=== PATIENT | male | born 1970 | race Caucasian/White ===

== ENCOUNTER 2016-06-19 08:21 | Inpatient (IN) | payer MEDICAID, OTHER ==
[~2016-06-19] VITALS: Ht 188 cm; Wt 90.7 kg
[2016-06-19] MEDS ORDERED: IV NS 0.9% 2,000 ML ONE (08:47)
[2016-06-19] MEDS ORDERED: IV SET PRIMARY 1 EA INFUS.SET MC ONE (08:47)
[2016-06-19] MEDS ORDERED: IV SET PRIMARY PUMP SET 1 EA INFUS.SET MC ONE ×2 (08:57→11:01)
--- NOTE | 2016-06-19 08:58 | NUR ---
PT REC' D TO ER C/O LEFT AEG CELLUITIS LARGE REDNESS OOZING UP ON PILLOWS . IV SATARTED 18 G IV RTAC LABS AND CULTURES DRAWN SENT TO LAB IV FLUIDS AND ANBX GIVENN PER MD ORDER . PT IN CUSTODY PENDING ADMIT
[2016-06-19 08:59] LABS: BASOPHILS % (AUTO) 0.4 % (0.0-2.0); EOSINOPHILS # (AUTO) 0.1 /CMM (0.0-0.7); EOSINOPHILS % (AUTO) 0.7 % (0.0-6.0); HEMATOCRIT 36 % (39-51); HEMOGLOBIN 11.9 g/dL (13.5-17.5); LYMPHOCYTES % (AUTO) 9.1 % (20.0-44.0); MEAN CORPUSCULAR HEMOGLOBIN 26 PG (26.0-33.0); MEAN CORPUSCULAR HGB CONC 33 g/dl (31.0-36.0); MEAN CORPUSCULAR VOLUME 79 fL (80-96); MONOCYTES # (AUTO) 0.9 /CMM (0.1-1.30); MONOCYTES % (AUTO) 8.4 % (2.0-12.0); NEUTROPHILS # (AUTO) 8.5 /CMM (1.8-8.9); NEUTROPHILS % (AUTO) 81.4 % (43.0-81.0); PLATELET COUNT (AUTO) 415 /CMM (150-450); RDW COEFFICIENT OF VARIATION 15.2 (11.5-15.0); RED BLOOD CELL COUNT(AUTO) 4.63 MIL/uL (4.5-6.0); WHITE BLOOD COUNT (AUTO) 10.4 K/uL (4.3-11.0)
[2016-06-19] MEDS ORDERED: PIPERACILLIN /TAZOBACTAM 3.375 G in IV D5W 50 ML IV ONE (09:00)
[2016-06-19] MEDS ORDERED: IV NS 0.9% 1,000 ML BAG IV ONE (09:00)
[2016-06-19] MEDS ORDERED: VANCOMYCIN 1 GM in IV D5W 250 ML IV ONE (09:00)
--- NOTE | 2016-06-19 09:10 | NUR ---
THR LRFT LEG CLEANED AND DRESSING APPLIED PT TOLERATED WELLAWAITING EVALUATION BY ER PROVIDER.
[2016-06-19 09:27] LABS: CALCIUM, SERUM 8.5 mg/dL (8.5-10.1); CREATININE 0.9 mg/dL (0.6-1.3); POTASSIUM 3.9 mmol/L (3.5-5.1)
[2016-06-19 09:38] LABS: LACTIC ACID 0.9 mmol/L (0.4-2.0)
[2016-06-19 09:43] LABS: INR 0.94 (0.87-1.13); PROTHROMBIN TIME 10.2 SECS (9.5-12.7)
--- NOTE | 2016-06-19 10:10 | NUR ---
PAGED DR. STAPLETON FOR ADMISSION
[2016-06-19] MEDS ORDERED: ENOXAPARIN SODIUM 30 MG/0.3 ML DISP.SYRIN ONE (10:16)
[2016-06-19] MEDS ORDERED: ENOXAPARIN SODIUM 100 MG/ML DISP.SYRIN SQ ONE (10:17)
--- NOTE | 2016-06-19 10:17 | NUR ---
LOVENOX GIVEN SQ PER MD PETIT
[2016-06-19] MEDS ORDERED: ENOXAPARIN SODIUM 30 MG/0.3 ML DISP.SYRIN SQ ONE (10:30)
--- NOTE | 2016-06-19 10:35 | NUR ---
PT TRANSFERED TO RM 200 REPORT GIVEN TO FLOOR VSS
[2016-06-19] MEDS ORDERED: FEE PK DOSING 1 MIN EA MC ONE (10:50)
[2016-06-19] MEDS ORDERED: ZOLPIDEM TARTRATE 5 MG TABLET PO PRN (11:00)
[2016-06-19] MEDS ORDERED: MAGNESIUM HYDROXIDE 30 ML UDC PO PRN (11:00)
[2016-06-19] MEDS ORDERED: Z GUARD REMEDY 2 OZ OINT TP PRN (11:00)
[2016-06-19] MEDS ORDERED: HYDROCODONE/APAP 5/325MG 1 EACH TABLET PO PRN (11:00)
[2016-06-19] MEDS ORDERED: ACETAMINOPHEN 325 MG TABLET PO PRN (11:00)
[2016-06-19] MEDS ORDERED: ONDANSETRON HCL/PF 4 MG/2 ML VIAL IVP PRN (11:00)
[2016-06-19] MEDS ORDERED: MAG HYDROX/AL HYDROX/SIMETH 30 ML UDC PO PRN (11:00)
[2016-06-19] MEDS ORDERED: SECONDARY IV SET 1 EA INFUS.SET MC ONE ×2 (11:01→17:09)
[2016-06-19] MEDS ORDERED: IV NS 0.9% 250 ML IV ONE (11:01)
--- NOTE | 2016-06-19 11:15 | NUR ---
MS/shellfish manager New admission from emergency room with left lower extremity cellulitis. Patient is in police custody, two [employer] officers at bedside. Fully admitted, awaiting orders from Dr Davila.
[2016-06-19] MEDS: CEFTRIAXONE 1 G in IV D5W 50 ML IV SCH (11:19)
[2016-06-19 11:25] VITALS: BP 138/73
--- NOTE | 2016-06-19 12:00 | NUR ---
MS/RN Pictures Pictures taken and placed in chart.
[2016-06-19] MEDS: PANTOPRAZOLE 40 MG TABLET.DR PO SCH (12:34)
--- NOTE | 2016-06-19 13:25 | NUR ---
MS/RN S/B Dr Davila Orders written and carried out, consult requested from Dr Ley.
--- NOTE | 2016-06-19 15:00 | NUR ---
MS/RN S/B Elizabeth Mathis VICE PRESIDENT OF TALENT ACQUISITION Seen by Elizabeth Mathis - wound care ordered, along with bilateral lower extremity arterial duplex.
--- NOTE | 2016-06-19 15:31 | NUR ---
MS/vp care management Dressing changed as per order, pictures already present and in chart.
--- NOTE | 2016-06-19 15:49 | NUR ---
MS/RN Vanco trough Vanco trough to be drawn prior to third dose (06/20 - 1600)
[2016-06-19 16:00] VITALS: BP 120/82
[2016-06-19] MEDS ORDERED: SET RED CAP 1 EA INFUS.SET MC ONE (17:09)
[2016-06-19] MEDS: VANCOMYCIN 1.25 GM in IV D5W 500 ML IV SCH ×2 (17:20→22:04)
--- NOTE | 2016-06-19 18:15 | NUR ---
MS/RN End note Legs remain elevated on two pillows, dressing dry and intact. No complaints of pain at this time, patient is calm and cooperative with care. No changes at this time, will endorse to overnight associate.
--- NOTE | 2016-06-19 19:40 | NUR ---
MS RN NOTE: PATIENT RESTING IN BED, NO ACUTE DISTRESS. BREATHING EVEN AND UNLABORED, NO SOB NOTED. IV TO RAC IN PLACE. [employer] OFFICER AT BEDSIDE, PATIENT UNDER [employer] CUSTODY. DRESSING TO LLE CLEAN AND IN PLACE. BED LOCKED AND IN LOWEST POSITION, CALL LIGHT IN REACH. WILL CONTINUE TO MONITOR.
[2016-06-19 20:00] VITALS: BP 119/65
--- NOTE | 2016-06-19 22:00 | NUR ---
MS RN NOTE: [employer] OFFICERS AT BEDSIDE AND INFORMED THAT SINCE PATIENT WILL BE IN HOSPITAL FOR POSSIBLE A FEW DAYS, THEY DON'T HAVE TO STAY AT BEDSIDE DUE NOT ENOUGH STAFF. PATIENT NO LONGER IN CUSTODY. BED LOCKED AND IN LOWEST POSITION, CALL LIGHT IN REACH. WILL CONTINUE TO MONITOR.
[2016-06-20] MEDS: VANCOMYCIN 1.25 GM in IV D5W 500 ML IV SCH ×3 (05:59→20:54)
--- NOTE | 2016-06-20 06:00 | NUR ---
MS RN NOTE: PATIENT RESTING IN BED, NO ACUTE DISTRESS. BREATHING EVEN AND UNLABORED, NO SOB NOTED. hl TO RAC IN PLACE. DRESSING TO LLE CLEAN AND IN PLACE. BED LOCKED AND IN LOWEST POSITION, CALL LIGHT IN REACH. WILL ENDORSE TO DAY NURSE TO CONTINUE WITH PLAN OF CARE.
[2016-06-20 06:57] LABS: BASOPHILS % (AUTO) 0.6 % (0.0-2.0); EOSINOPHILS # (AUTO) 0.2 /CMM (0.0-0.7); EOSINOPHILS % (AUTO) 2.9 % (0.0-6.0); HEMATOCRIT 35 % (39-51); HEMOGLOBIN 11.3 g/dL (13.5-17.5); LYMPHOCYTES % (AUTO) 13.3 % (20.0-44.0); MEAN CORPUSCULAR HEMOGLOBIN 26 PG (26.0-33.0); MEAN CORPUSCULAR HGB CONC 32 g/dl (31.0-36.0); MEAN CORPUSCULAR VOLUME 80 fL (80-96); MONOCYTES # (AUTO) 0.7 /CMM (0.1-1.30); MONOCYTES % (AUTO) 9.1 % (2.0-12.0); NEUTROPHILS # (AUTO) 5.6 /CMM (1.8-8.9); NEUTROPHILS % (AUTO) 74.1 % (43.0-81.0); PLATELET COUNT (AUTO) 322 /CMM (150-450); RDW COEFFICIENT OF VARIATION 15.5 (11.5-15.0); RED BLOOD CELL COUNT(AUTO) 4.39 MIL/uL (4.5-6.0); WHITE BLOOD COUNT (AUTO) 7.6 K/uL (4.3-11.0)
[2016-06-20 07:19] LABS: CALCIUM, SERUM 8.3 mg/dL (8.5-10.1); CREATININE 0.9 mg/dL (0.6-1.3); PHOSPHORUS 3.6 mg/dL (2.5-4.9); POTASSIUM 3.6 mmol/L (3.5-5.1)
[2016-06-20 08:00] VITALS: BP 109/65
--- NOTE | 2016-06-20 08:15 | NUR ---
MS/RN AM NOTES RECEIVED PATIENT IN BED, A/OX 4. DENIES PAIN, NO SOB, IV LINE RAC PATENT, NO SWELLING, NO REDNESS, ABLE TO FLUSH. NEEDS MET,WITH CALL LIGHT WITHIN EASY REACH
[2016-06-20] MEDS: RIVAROXABAN 15 MG TABLET PO SCH ×2 (08:52→18:00)
[2016-06-20] MEDS: PANTOPRAZOLE 40 MG TABLET.DR PO SCH (08:52)
--- NOTE | 2016-06-20 11:09 | NUR ---
Social service consult requested by Nursing grounds maintenance supervisor [facility] for homelessness. Per H&P report by Dr. Davila, Pt. is a 46 year old man who is homeless and presented to ED in [employer] custody with left lower extremity cellulitis. Pt. was admitted for left lower extremity cellulitis, DVT. SW met with pt. bedside. Pt. is A&O x 4. Initially pt. was guarded in answering questions but became less guarded as the assessment continued. SW asked pt. if he is homeless. Pt. responded " I'm roaming around to find a home." Pt. is no longer in custody. SW inquired with pt. the reason he was in custody and if he is on probation? Pt. stated " to ask the police for that information." Pt. is being evasive in providing information. Pt. has an extensive history of drug and alcohol use. Pt. states he does it all. Pt. also smokes cigarettes. Pt. stated," I smoke a pack a day to how much ever I want." Pt. last used methamphetamines two days ago prior to hospitalization. Pt. denies suicidal/homicidal ideations and visual/auditory hallucinations at this time. Pt. has no source of income. SW offered pt. skilled nursing placement, however pt. seemed skeptical. SW to give pt. homeless resources prior to discharge and inquire again with pt. if he would like skilled nursing placement.
[2016-06-20] MEDS: CEFTRIAXONE 1 G in IV D5W 50 ML IV SCH (11:58)
[2016-06-20 16:00] VITALS: BP 119/71
[2016-06-20] MEDS: LACTOBACILLUS RHAMNOSUS GG 1 EACH CAP.SPRINK PO SCH (18:01)
--- NOTE | 2016-06-20 19:05 | NUR ---
RN NOTE RECEIVED REPORT. PT AAOX4, NO C/O PAIN OR DISCOMFORT. BREATHING EVEN AND NON-LABORED. R AC INTACT AND PATENT H/L. NO DISTRESS AT THIS TIME. WILL CONTINUE TO MONITOR.
[2016-06-20 20:00] VITALS: BP 113/72
--- NOTE | 2016-06-21 02:12 | NUR ---
RN NOTE PT RESTING COMFORTABLY IN BED. NO DISTRESS NOTED AT THIS TIME. WILL CONT TO MONTITOR.
[2016-06-21] MEDS: VANCOMYCIN 1.25 GM in IV D5W 500 ML IV SCH ×3 (04:23→23:11)
[2016-06-21 07:11] LABS: CALCIUM, SERUM 8.3 mg/dL (8.5-10.1); POTASSIUM 3.9 mmol/L (3.5-5.1)
--- NOTE | 2016-06-21 07:30 | NUR ---
MS/RN Patient received Patient received from rouge mixer. No needs at this time, denies pain. Dressing to left lower extremity dry and intact, leg remains elevated on two pillows. Call light within reach, will continue to monitor.
[2016-06-21 08:00] VITALS: BP 120/67
[2016-06-21] MEDS: LACTOBACILLUS RHAMNOSUS GG 1 EACH CAP.SPRINK PO SCH ×2 (08:10→16:38)
[2016-06-21] MEDS: RIVAROXABAN 15 MG TABLET PO SCH ×2 (08:10→16:38)
[2016-06-21] MEDS: PANTOPRAZOLE 40 MG TABLET.DR PO SCH (08:10)
--- NOTE | 2016-06-21 08:39 | NUR ---
MS/RN Medications Morning medications administered as ordered.
[2016-06-21] MEDS ORDERED: SET RED CAP 1 EA INFUS.SET MC ONE (10:55)
[2016-06-21] MEDS: CEFTRIAXONE 1 G in IV D5W 50 ML IV SCH (10:56)
[2016-06-21] MEDS ORDERED: IV NS 0.9% 250 ML IV ONE (11:01)
--- NOTE | 2016-06-21 13:00 | NUR ---
MS/RN Vanco level Vanco level prior to third dose 15, therefore dose administered.
[2016-06-21 16:00] VITALS: BP 131/79
--- NOTE | 2016-06-21 16:48 | NUR ---
MS/RN Dressing change Dressing changed, cleansed with 1/4 strength dakins, gauez, kerlix wrap. Leg kept elevated on two pillows.
[2016-06-21] MEDS: DAKINS QUARTER STRENGTH (0.125%) 480 ML BOTTLE TOP SCH (17:15)
--- NOTE | 2016-06-21 18:45 | NUR ---
MS/RN End note No changes at this time, continues to deny pain. Dressing dry and intact, no new needs or concerns at this time, will endorse to half section ironer.
[2016-06-21 19:00] VITALS: BP 104/60
--- NOTE | 2016-06-21 19:45 | NUR ---
MSRN FULLY AWAKE, PAINFREE, DENIES ANY DISCOMFORTS. REMINDED TO CALL STAFF FOR ANY ASSISTANCE OR DISCOMFORTS. ALL NEEDS ATTENDED.
[2016-06-21 20:00] VITALS: BP 109/63
--- NOTE | 2016-06-21 22:00 | NUR ---
MSRN DUE MEDS GIVEN, NO OTHER NEEDS MADE.
--- NOTE | 2016-06-22 02:07 | NUR ---
MSRN SLEEPING APPEARS COMFORTABLE.
[2016-06-22] MEDS: VANCOMYCIN 1.25 GM in IV D5W 500 ML IV SCH ×3 (05:52→21:19)
[2016-06-22 06:45] LABS: BASOPHILS % (AUTO) 0.5 % (0.0-2.0); EOSINOPHILS # (AUTO) 0.2 /CMM (0.0-0.7); EOSINOPHILS % (AUTO) 2.2 % (0.0-6.0); HEMATOCRIT 43 % (39-51); HEMOGLOBIN 14.1 g/dL (13.5-17.5); LYMPHOCYTES # (AUTO) 1.1 /CMM (0.8-4.8); LYMPHOCYTES % (AUTO) 11.8 % (20.0-44.0); MEAN CORPUSCULAR HEMOGLOBIN 26 PG (26.0-33.0); MEAN CORPUSCULAR HGB CONC 33 g/dl (31.0-36.0); MEAN CORPUSCULAR VOLUME 79 fL (80-96); MONOCYTES # (AUTO) 0.6 /CMM (0.1-1.30); MONOCYTES % (AUTO) 6.7 % (2.0-12.0); NEUTROPHILS % (AUTO) 78.8 % (43.0-81.0); PLATELET COUNT (AUTO) 380 /CMM (150-450); RDW COEFFICIENT OF VARIATION 14.9 (11.5-15.0); RED BLOOD CELL COUNT(AUTO) 5.41 MIL/uL (4.5-6.0); WHITE BLOOD COUNT (AUTO) 8.9 K/uL (4.3-11.0)
--- NOTE | 2016-06-22 06:50 | NUR ---
MSRN REMAINS UNCHANGED. DENIES ANY DISCOMFORTS.
[2016-06-22 07:07] LABS: CALCIUM, SERUM 8.6 mg/dL (8.5-10.1); CREATININE 0.9 mg/dL (0.6-1.3); POTASSIUM 4.2 mmol/L (3.5-5.1)
--- NOTE | 2016-06-22 07:42 | NUR ---
MS/RN Patient received Patient received from hourly shift, sleeping at this time, appears in no distress. Call light within reach, will continue to monitor.
[2016-06-22 08:19] VITALS: BP 109/67
[2016-06-22] MEDS: LACTOBACILLUS RHAMNOSUS GG 1 EACH CAP.SPRINK PO SCH ×2 (08:28→17:20)
[2016-06-22] MEDS: RIVAROXABAN 15 MG TABLET PO SCH ×2 (08:28→17:20)
[2016-06-22] MEDS: PANTOPRAZOLE 40 MG TABLET.DR PO SCH (08:28)
[2016-06-22] MEDS: DAKINS QUARTER STRENGTH (0.125%) 480 ML BOTTLE TOP SCH (08:29)
--- NOTE | 2016-06-22 09:30 | NUR ---
MS/RN Medications Morning medications administered as ordered. Continues to deny pain.
--- NOTE | 2016-06-22 11:00 | NUR ---
MS/RN Rocephin IVAB rocephin hung as ordered, no reaction noted.
[2016-06-22] MEDS: CEFTRIAXONE 1 G in IV D5W 50 ML IV SCH (11:22)
--- NOTE | 2016-06-22 12:14 | NUR ---
MS/RN S/B DRENCHER Student Seen by Mateusz Mariee's DRENCHER student - labs ordered for tomorrow.
--- NOTE | 2016-06-22 14:00 | NUR ---
MS/RN S/B Dr Urrutia Seen by Dr Urrutia - patient will be taken to OR tomorrow for surgical debridement of left lower leg wound.
--- NOTE | 2016-06-22 14:43 | NUR ---
MS/RN Consents Consent forms signed for left leg debridement tomorrow. NPO from midnight.
[2016-06-22 16:00] VITALS: BP 129/69
--- NOTE | 2016-06-22 19:27 | NUR ---
MS/RN End note No changes at this time, patient aware that no food or drink after midnight. Consent forms signed and placed in chart. Call light in reach, will endorse to media coordinator.
--- NOTE | 2016-06-22 19:30 | NUR ---
RN NOTE; RECEIVED PT IN BED AWAKE AND ALERT. BREATHING EVENLY. NO SOB. NO DISTRESS. SKIN WARM AND DRY. DRESSING ON L LEG CDI, NO C/O PAIN OR DISCOMFORT. NEEDS ATTENDED. BED LOW LOCKED. SRX2. CALL LIGHT WITHIN REACH. WILL CONT TO MONITOR
[2016-06-22 20:00] VITALS: BP 104/60
[2016-06-23] VITALS (13 sets, daily range): BP systolic 116–140; BP diastolic 60–71
[2016-06-23] MEDS: VANCOMYCIN 1.25 GM in IV D5W 500 ML IV SCH ×2 (04:51→13:46)
--- NOTE | 2016-06-23 06:25 | NUR ---
RN NOTE; PT IN BED SLEEPING, AROUSES EASILY. BREATHING EVENLY. NO SOB. NO C/O PAIN OR DISCOMFORT. DRESSING ON LLE ICD. NPO FOR SX TODAY. NO C/O PAIN OR DISCOMFORT, NEEDS ATTENDED. BED LOW LOCKED. CALL LIGHT WITHIN REACH. WILL CONT TO MONITOR AND WILL ENDORSE TO AM SHIFT FOR LEVON.
[2016-06-23 06:40] LABS: BASOPHILS # (AUTO) 0.1 /CMM (0.0-0.2); BASOPHILS % (AUTO) 0.6 % (0.0-2.0); EOSINOPHILS # (AUTO) 0.3 /CMM (0.0-0.7); EOSINOPHILS % (AUTO) 3.1 % (0.0-6.0); HEMATOCRIT 45 % (39-51); HEMOGLOBIN 14.2 g/dL (13.5-17.5); LYMPHOCYTES % (AUTO) 10.7 % (20.0-44.0); MEAN CORPUSCULAR HEMOGLOBIN 25 PG (26.0-33.0); MEAN CORPUSCULAR HGB CONC 32 g/dl (31.0-36.0); MEAN CORPUSCULAR VOLUME 80 fL (80-96); MONOCYTES # (AUTO) 0.9 /CMM (0.1-1.30); NEUTROPHILS # (AUTO) 7.2 /CMM (1.8-8.9); NEUTROPHILS % (AUTO) 76.6 % (43.0-81.0); PLATELET COUNT (AUTO) 381 /CMM (150-450); RDW COEFFICIENT OF VARIATION 14.9 (11.5-15.0); WHITE BLOOD COUNT (AUTO) 9.4 K/uL (4.3-11.0)
[2016-06-23 06:57] LABS: CALCIUM, SERUM 8.9 mg/dL (8.5-10.1); CREATININE 1.1 mg/dL (0.6-1.3); POTASSIUM 4.3 mmol/L (3.5-5.1)
[2016-06-23] MEDS: PANTOPRAZOLE 40 MG TABLET.DR PO SCH (07:30)
--- NOTE | 2016-06-23 08:00 | NUR ---
MS RN NOTES PATIENT TRANSFERRED TO OR IN STABLE CONDITION. NO SOB OR ACUTE DISTRESS. VS WNL.
[2016-06-23] MEDS ORDERED: FENTANYL PF 100MCG/2ML AMPUL ONE (08:36)
[2016-06-23] MEDS ORDERED: MIDAZOLAM HCL 2 MG/2ML VIAL ONE (08:36)
[2016-06-23] MEDS: LACTOBACILLUS RHAMNOSUS GG 1 EACH CAP.SPRINK PO SCH ×2 (09:00→17:23)
[2016-06-23] MEDS: RIVAROXABAN 15 MG TABLET PO SCH ×2 (09:00→17:23)
[2016-06-23] MEDS: DAKINS QUARTER STRENGTH (0.125%) 480 ML BOTTLE TOP SCH (09:00)
[2016-06-23] MEDS ORDERED: BUPIVACAINE MPF 0.5% W/EPI INJ 30 ML VIAL ONE (09:36)
--- NOTE | 2016-06-23 10:00 | NUR ---
MS RN NOTES RECEIVED PATIENT FROM OR IN STABLE CONDITION. NO SOB OR ACUTE DISTRESS NOTED. IV INTACT PATENT. VS WNL. WILL CONTINUE TO MONITOR CLOSELY.
[2016-06-23] MEDS: CEFTRIAXONE 1 G in IV D5W 50 ML IV SCH (11:12)
--- NOTE | 2016-06-23 17:00 | NUR ---
MS RN NOTES CONFIRMED WITH DR. DOLAN OK TO GIVE XARELTO STATES IF PATIENT HAS NO SIGNS OF BLEEDING ON DRESSING OK TO GIVE. NO BLEEDING NOTED ON DRESSING GAVE XARELTO ORDERED.
--- NOTE | 2016-06-23 18:35 | NUR ---
MS RN NOTES PATIENT IN BED RESTING NO SOB OR ACUTE DISTRESS NOTED. LEFT LEG ELEVATED. NO SIGNS OF BLEEDING. ALL DUE MEDICATIONS GIVEN. ALL NEEDS MET. WILL ENDORSE TO PM SHIFT LEVON.
--- NOTE | 2016-06-23 19:30 | NUR ---
RN NOTE; RECEIVED PT IN BED AWAKE AND ALERT, BRATHING EVENLY. NO SOB. NO DISTRESS. DRESSING LLE CDI. NO BLEEDING. NO C/O PAIN OR DISCOMFORT. CALL LIGHT WITHIN REACH. WILL CONT TO MONITOR
[2016-06-23] MEDS: MUPIROCIN OINT 2% 22 GM TUBE SCH (21:46)
[2016-06-24] MEDS: VANCOMYCIN 1.25 GM in IV D5W 500 ML IV SCH ×2 (00:56→13:58)
--- NOTE | 2016-06-24 06:33 | NUR ---
RN NOTE; PT IN BED SLEEPING, AROUSES EASILY. RR EVEN, UNLABORED. REMAINED STABLE THROUGH THE PROFESSOR OF VISUAL ARTS. W/ NO C/O PAIN OR DISCOMFORT. DRESSING ON LLE CDR W/ NO BLEEDING. ASSISTED W/ ADLS. NEEDS ATTENDED. CALL LIGHT WITHIN REACH. WILL CONT TO MONITOR AND WILL ENDORSE TO AM SHIFT FOR LEVON.
[2016-06-24 07:22] LABS: BASOPHILS % (AUTO) 0.4 % (0.0-2.0); EOSINOPHILS # (AUTO) 0.2 /CMM (0.0-0.7); EOSINOPHILS % (AUTO) 2.3 % (0.0-6.0); HEMATOCRIT 44 % (39-51); HEMOGLOBIN 14.4 g/dL (13.5-17.5); LYMPHOCYTES # (AUTO) 1.1 /CMM (0.8-4.8); LYMPHOCYTES % (AUTO) 11.4 % (20.0-44.0); MEAN CORPUSCULAR HEMOGLOBIN 26 PG (26.0-33.0); MEAN CORPUSCULAR HGB CONC 33 g/dl (31.0-36.0); MEAN CORPUSCULAR VOLUME 79 fL (80-96); MONOCYTES # (AUTO) 0.9 /CMM (0.1-1.30); MONOCYTES % (AUTO) 9.9 % (2.0-12.0); NEUTROPHILS # (AUTO) 7.1 /CMM (1.8-8.9); PLATELET COUNT (AUTO) 368 /CMM (150-450); RDW COEFFICIENT OF VARIATION 14.8 (11.5-15.0); RED BLOOD CELL COUNT(AUTO) 5.54 MIL/uL (4.5-6.0); WHITE BLOOD COUNT (AUTO) 9.4 K/uL (4.3-11.0)
[2016-06-24 07:27] LABS: CALCIUM, SERUM 8.4 mg/dL (8.5-10.1); CREATININE 0.9 mg/dL (0.6-1.3); POTASSIUM 4.2 mmol/L (3.5-5.1)
[2016-06-24 08:00] VITALS: BP 112/56
--- NOTE | 2016-06-24 08:00 | NUR ---
MS RN NOTES PATIENT IN BED RESTING NO SOB OR ACUTE DISTRESS NOTED. DENIES ANY PAIN OR DISCOMFORT. IV INTACT PATENT. BED IN LOW LOCKED POSITION. CALL LIGHT WITHIN REACH. WILL CONTINUE TO MONITOR.
[2016-06-24] MEDS: PANTOPRAZOLE 40 MG TABLET.DR PO SCH (08:11)
[2016-06-24] MEDS: RIVAROXABAN 15 MG TABLET PO SCH ×2 (08:11→16:50)
[2016-06-24] MEDS: LACTOBACILLUS RHAMNOSUS GG 1 EACH CAP.SPRINK PO SCH ×2 (08:11→16:49)
[2016-06-24] MEDS: DAKINS QUARTER STRENGTH (0.125%) 480 ML BOTTLE TOP SCH (08:12)
[2016-06-24] MEDS: MUPIROCIN OINT 2% 22 GM TUBE SCH ×2 (08:13→20:35)
[2016-06-24] MEDS: CEFTRIAXONE 1 G in IV D5W 50 ML IV SCH (11:10)
--- NOTE | 2016-06-24 13:03 | NUR ---
MS RN NOTES CONFIRMED WITH RAKESH PHARMACIST OK TO GIVE VANCO THROUGH SCHEDULED FOR 06/26/2015.
[2016-06-24 16:00] VITALS: BP 113/64
--- NOTE | 2016-06-24 18:55 | NUR ---
MS RN NOTES PATIENT IN BED RESTING NO SOB OR ACUTE DISTRESS NOTED. DENIES ANY PAIN OR DISCOMFORT. DRESSING CHANGED ORDERED. ALL DUE MEDICATIONS GIVEN, ALL NEEDS MET. WILL ENDORSE CARE TO PM SHIFT.
--- NOTE | 2016-06-24 19:35 | NUR ---
MS RN NOTE RECEIVED PATIENT FROM DAY SHIFT, PATIENT IS ALERT AND ORIENTEDX4, DENIES RESPIRATORY DISTRESS OR PAIN AT THIS TIME. IV ON RIGHT AC IS PATENT AND INTACT, HL ONLY. SRX2, BED IN LOW POSITION, CALL LIGHT WITH IN REACH, WILL CONTINUE TO MONITOR PATIENT.
--- NOTE | 2016-06-24 20:30 | NUR ---
MS RN NOTE PATIENT'S LATEST VANCO TROUGH WAS 24, CALLED PHARMACY TO ASK IF IT IS OKAY TO GIVE 0100 DOSE. PER PHARMACIST, IT IS OKAY TO GIVE. WILL ADMINISTER AROUND 0100.
[2016-06-24 20:52] VITALS: BP 106/62
[2016-06-25] MEDS: VANCOMYCIN 1.25 GM in IV D5W 500 ML IV SCH ×2 (00:47→13:13)
[2016-06-25 06:45] LABS: BASOPHILS # (AUTO) 0.1 /CMM (0.0-0.2); BASOPHILS % (AUTO) 1.1 % (0.0-2.0); EOSINOPHILS # (AUTO) 0.3 /CMM (0.0-0.7); EOSINOPHILS % (AUTO) 3.9 % (0.0-6.0); HEMATOCRIT 44 % (39-51); HEMOGLOBIN 14.2 g/dL (13.5-17.5); LYMPHOCYTES # (AUTO) 1.4 /CMM (0.8-4.8); LYMPHOCYTES % (AUTO) 18.5 % (20.0-44.0); MEAN CORPUSCULAR HEMOGLOBIN 26 PG (26.0-33.0); MEAN CORPUSCULAR HGB CONC 32 g/dl (31.0-36.0); MEAN CORPUSCULAR VOLUME 80 fL (80-96); MONOCYTES # (AUTO) 0.9 /CMM (0.1-1.30); MONOCYTES % (AUTO) 11.2 % (2.0-12.0); NEUTROPHILS % (AUTO) 65.3 % (43.0-81.0); PLATELET COUNT (AUTO) 350 /CMM (150-450); RDW COEFFICIENT OF VARIATION 15.1 (11.5-15.0); RED BLOOD CELL COUNT(AUTO) 5.52 MIL/uL (4.5-6.0); WHITE BLOOD COUNT (AUTO) 7.7 K/uL (4.3-11.0)
--- NOTE | 2016-06-25 06:46 | NUR ---
MS RN NOTE PATIENT IS SLEEPING IN BED COMFORTABLY, NO S/S OF RESPIRATORY DISTRESS OR FACIAL GRIMACE NOTED AT THIS TIME. IV ON RIGHT FA IS PATENT AND INTACT, HL ONLY. DRESSING ON LLE C/D/I. WILL ENDORSE TO DAY SHIFT FOR LEVON.
[2016-06-25 06:51] LABS: CALCIUM, SERUM 8.8 mg/dL (8.5-10.1); CREATININE 0.9 mg/dL (0.6-1.3); MAGNESIUM 2.1 mg/dL (1.8-2.4); PHOSPHORUS 4.3 mg/dL (2.5-4.9); POTASSIUM 4.5 mmol/L (3.5-5.1)
--- NOTE | 2016-06-25 07:15 | NUR ---
TERRY RN INITIAL NOTES RECEIVED PATIENT IN BED AWAKE, A/O X4. BREATHING EVEN AND NON LABORED, ON ROOM AIR, NO SOB NOTED. LEFT ANKLE/LLE WOUND DRESSING IN PLACE, NO BLEEDING NOTED. LLE ELEVATED WITH PILLOWS. NO C/O PAIN AT THIS TIME. IV IN RIGHT AC G18 HL. CALL LIGHT WITHIN REACH. WILL CONT TO MONITOR. ON CONTACT ISOLATION-MRSA NARES, CONTACT ISOLATION OBSERVED.
[2016-06-25 08:00] VITALS: BP 117/59
[2016-06-25] MEDS: RIVAROXABAN 15 MG TABLET PO SCH (08:17)
[2016-06-25] MEDS: LACTOBACILLUS RHAMNOSUS GG 1 EACH CAP.SPRINK PO SCH (08:18)
[2016-06-25] MEDS: PANTOPRAZOLE 40 MG TABLET.DR PO SCH (08:18)
[2016-06-25] MEDS: MUPIROCIN OINT 2% 22 GM TUBE SCH (08:22)
[2016-06-25] MEDS: DAKINS QUARTER STRENGTH (0.125%) 480 ML BOTTLE TOP SCH (10:01)
--- NOTE | 2016-06-25 10:15 | NUR ---
WOUND DRESSING DONE IN LEFT LOWER LEG, NO BLEEDING NOTED. PATIENT TOLERATED WELL, NO C/O PAIN AT THIS TIME. MADE COMFORTABLE IN BED.
[2016-06-25] MEDS: CEFTRIAXONE 1 G in IV D5W 50 ML IV SCH (10:16)
--- NOTE | 2016-06-25 15:10 | NUR ---
PATIENT IN BED, A/O X3. NO C/O PAIN OR ANY DISCOMFORT, PATIENT STATED HE WANTS TO LEAVE HOSP TODAY AND DOES NOT WANT TO STAY IN THE HOSP TONIGHT AND FOR ANOTHER DAY, PATIENT STATED HE IS SO BORED STAYING IN THE HOSP. EXPLAINED TO PATIENT THE BENEFITS OF CONTINUED TREATMENT AND HOSPITALIZATION, PATIENT STILL REFUSED, AND STATED HE WILL SIGN AGAINST MEDICAL ADVICE. PATIENT IS HOMELESS. DR. RAKESH HO INFORMED.
--- NOTE | 2016-06-25 15:30 | NUR ---
PATIENT INSISTING TO LEAVE HOSP NOW. EXPLAINED TO PATIENT HE'S ON ANTIBIOTIC TREATMENT FOR HIS WOUND, EXPLAINED TO PATIENT THE IMPORTANCE, RISK AND BENEFITS OF ANTIBIOTIC AND WOUND DRESSING DAILY, PER PATIENT HE WILL GO THE CLINIC TO CHECK.
--- NOTE | 2016-06-25 15:32 | NUR ---
MS RN IV ACCESS IN RIGHT AC REMOVED, GAUZED APPLIED. NO BLEEDING NOTED. BELONGINGS CHECKED AND SEND WITH THE PATIENT UPON LEAVING THE HOSP AMA. PER PATIENT HE WILL GO TO THE WOUND CLINIC FOR HIS WOUND CARE. DR. RAKESH HO INFORMED. METAL MOVER MADE AWARE. PATIENT REFUSED SKIN PHOTOS OF THE WOUND. PATIENT LEFT HOSP. AGAINST MEDICAL ADVICE. AMA FORM PLACE IN THE CHART.
== END 2016-06-25 18:17 | disposition left against medical advice (07) | DRG 951 ==
LOC: ER 08:23 → MEDSG2 10:16
PROVIDERS: ADMIT Internal Medicine; ATTEND Internal Medicine
PROC: 0LBT0ZZ Excision of Left Ankle Tendon, Open Approach (ICD-10-PCS; principal; 2016-06-23 09:09)
DX: L03.116 Cellulitis of left lower limb (principal); I82.5Z2 Chronic embolism and thrombosis of unspecified deep veins of left distal lower extremity; L97.323 Non-pressure chronic ulcer of left ankle with necrosis of muscle; I83.223 Varicose veins of left lower extremity with both ulcer of ankle and inflammation; F15.10 Other stimulant abuse, uncomplicated; D50.9 Iron deficiency anemia, unspecified; F10.21 Alcohol dependence, in remission; F17.210 Nicotine dependence, cigarettes, uncomplicated; R73.9 Hyperglycemia, unspecified; Z59.0 Homelessness; Z91.14 Patient's other noncompliance with medication regimen; L02.416 Cutaneous abscess of left lower limb
CPT/HCPCS: 36415; 71010-TC; 73610-TC; 80048-TC; 80061-TC; 80202-TC; 83605-TC; 83735-TC; 84100-TC; 85025-TC; 85730-TC; 87040-TC; 87070-TC; 87081-TC; 87186-TC; 93925-TC; 93971-TC; A4606; A6209; A6402; A6403; J0696; J1650; J2250; J2543; J2704; J3010; J3370; J3490; J7030; J7050; J7060; Z7610